=== PATIENT | male | born 1950 | race Caucasian/White ===

== ENCOUNTER 2024-04-30 09:04 | Day surgery (SDC) | payer OTHER ==
[2024-04-26 16:05] LABS: BASOPHILS % (AUTO) 0.8 % (0-1); EOSINOPHILS # (AUTO) 0.3 X10'3 (0-0.9); EOSINOPHILS % (AUTO) 4.8 % (0-6); HEMATOCRIT 47.9 % (42.0-52.0); HEMOGLOBIN 15.4 g/dl (14.0-17.9); LYMPHOCYTES # (AUTO) 1.7 X10'3 (1.1-4.8); LYMPHOCYTES % (AUTO) 31.3 % (21-51); MEAN CORPUSCULAR HEMOGLOBIN 28.5 PG (27.0-31.0); MEAN CORPUSCULAR HGB CONC 32.2 g/dL (33.0-36.5); MEAN CORPUSCULAR VOLUME 88.3 FL (78-98); MEAN PLATELET VOLUME 8.3 FL (7.4-10.4); MONOCYTES # (AUTO) 0.4 X10'3 (0-0.9); MONOCYTES % (AUTO) 8.1 % (2-12); PLATELET COUNT 175 X10'3 (140-440); RED BLOOD COUNT 5.43 X10'6 (4.70-6.10); RED CELL DISTRIBUTION WIDTH 15.3 % (11.5-14.5); WHITE BLOOD COUNT 5.5 X10'3 (4.5-11.0)
[2024-04-26 16:15] LABS: APTT 28 SECONDS (22-32); INR 1.1 INR; PROTHROMBIN TIME 11.4 SECONDS (9.0-12.0)
[2024-04-26 16:16] LABS: ALBUMIN 3.7 G/DL (3.4-5.0); ANION GAP 6 (8-16); BLOOD UREA NITROGEN 27 MG/DL (7-18); BUN/CREATININE RATIO 13.8 (10.0-20.0); CHLORIDE 106 MMOL/L (99-107); CHOL/HDL RATIO 2.1 (0.00-4.99); CHOLESTEROL 119 MG/DL (0-200); CREATININE 1.96 MG/DL (0.60-1.10); GLUCOSE 186 MG/DL (70-104); HDL CHOLESTEROL 56 MG/DL (35-60); LDL CHOLESTEROL 55 MG/DL (50-100); POTASSIUM 4.8 MMOL/L (3.5-5.1); SODIUM 141 MMOL/L (135-145); TOTAL CARBON DIOXIDE 29.3 MMOL/L (24-32); TRIGLYCERIDES 45 MG/DL (20-135); eGFR 34 ML/MIN
[2024-04-30] VITALS (11 sets, daily range): BP systolic 130–168; BP diastolic 85–101; PULSE 77–101; RESP 12–17; TEMP 98; O2SAT 90–95
[~2024-04-30] VITALS: Ht 167.6 cm; Wt 78.0 kg
[2024-04-30] MEDS ORDERED: ATOR40TA71 PO (11:29)
[2024-04-30] MEDS ORDERED: TIOT4MIS2 IH (11:29)
[2024-04-30] MEDS ORDERED: LISI2.5T14 PO (11:29)
[2024-04-30] MEDS ORDERED: CYAN100T24 PO (11:29)
[2024-04-30] MEDS ORDERED: ALBU18HF2 INH (11:29)
[2024-04-30] MEDS ORDERED: ASPI-611 PO (11:29)
[2024-04-30] MEDS ORDERED: ERGO400C2 PO (11:29)
[2024-04-30] MEDS ORDERED: GUAI600T45 PO (11:29)
[2024-04-30] MEDS ORDERED: FLO0.4C PO (11:29)
[2024-04-30] MEDS ORDERED: OMEP20CA16 PO (11:29)
[2024-04-30] MEDS ORDERED: HUM7525 SQ (11:29)
[2024-04-30] MEDS ORDERED: FERR-39 PO (11:29)
[2024-04-30] MEDS ORDERED: verapamil 2.5 mg/ml inj IV ONE (11:44)
[2024-04-30] MEDS: diphenhydrAMINE 25mg capsule PO PRN (11:44)
[2024-04-30] MEDS: LORazepam 0.5 MG tablet PO PRN (11:44)
[2024-04-30] MEDS ORDERED: LIDOcaine 1% (10mg/ml) 2ml vial ONE (11:44)
[2024-04-30] MEDS ORDERED: fentaNYL/PF 50MCG/1 ML 2ML syringe ONE (11:45)
[2024-04-30] MEDS ORDERED: iohexol 350MG/ML 100ml bottle IV ONE (11:45)
[2024-04-30] MEDS: normal saline 1,000 ML IV SCH (11:45)
[2024-04-30] MEDS ORDERED: midazolam 1 mg/ML 2ml injection ONE ×2 (11:45→13:31)
[2024-04-30] MEDS ORDERED: heparin 1,000unit/ml 10ml vial 10 ML ONE (11:45)
[2024-04-30] MEDS ORDERED: iohexol 350 MG/ML 50ML vial IV ONE (11:45)
[2024-04-30] MEDS ORDERED: nitroGLYCERIN 500mcg/5mL D5W 5 ML IV ONE (11:46)
[2024-04-30] MEDS ORDERED: LIDOcaine 1% 30ml preserv. free vial ONE (13:01)
[2024-04-30 14:02] LABS: ISTAT HGB ART 13.9 g/dl (14.0-17.9); ISTAT Hct ART 41 %PCV (42-52); ISTAT O2 SATURATION ARTERIAL 93 % (95-98); ISTAT SOURCE ART
[2024-04-30] MEDS ORDERED: HYDROcodone/acetaminophen 5mg/325mg tablet PO PRN (14:15)
[2024-04-30] MEDS ORDERED: HYDROcodone/acetaminophen 10/325mg tab PO PRN (14:15)
[2024-05-01 06:15] LABS: ISTAT HGB MIX 14.3 g/dl (14.0-17.9); ISTAT Hct MIX 42 %PCV (42-52); ISTAT O2 SATURATION MIX VENOUS 56 % (60-80); ISTAT SOURCE VEN
== END 2024-04-30 16:32 | disposition home or self-care (01) ==
LOC: SSTAY O 09:04
PROVIDERS: ATTEND Student in an Organized Health Care Education/Training Program
DX: I35.0 Nonrheumatic aortic (valve) stenosis (principal); I10 Essential (primary) hypertension; I25.10 Atherosclerotic heart disease of native coronary artery without angina pectoris; E11.9 Type 2 diabetes mellitus without complications; E78.00 Pure hypercholesterolemia, unspecified; J44.9 Chronic obstructive pulmonary disease, unspecified; F43.10 Post-traumatic stress disorder, unspecified; Z79.82 Long term (current) use of aspirin; Z79.899 Other long term (current) drug therapy; Z82.49 Family history of ischemic heart disease and other diseases of the circulatory system
CPT/HCPCS: 36415; 76937; 80048; 80061; 82803; 82948; 85014; 85025; 85610; 85730; 93005; 93460; 99152; 99153; J1644; J2250; J3010; J3490; J7030; Q0163; Q9967; A4615; A6258; C1751; C1887; C1894

== ENCOUNTER 2024-06-18 09:20 | Day surgery (SDC) | payer OTHER ==
[2024-06-14 11:55] LABS: BASOPHILS # (AUTO) 0.1 X10'3 (0-0.2); BASOPHILS % (AUTO) 1.3 % (0-1); EOSINOPHILS # (AUTO) 0.3 X10'3 (0-0.9); EOSINOPHILS % (AUTO) 4.4 % (0-6); HEMATOCRIT 43.6 % (42.0-52.0); HEMOGLOBIN 14.1 g/dl (14.0-17.9); LYMPHOCYTES # (AUTO) 1.7 X10'3 (1.1-4.8); LYMPHOCYTES % (AUTO) 28.7 % (21-51); MEAN CORPUSCULAR HEMOGLOBIN 28.9 PG (27.0-31.0); MEAN CORPUSCULAR HGB CONC 32.3 g/dL (33.0-36.5); MEAN CORPUSCULAR VOLUME 89.4 FL (78-98); MEAN PLATELET VOLUME 8.1 FL (7.4-10.4); MONOCYTES # (AUTO) 0.4 X10'3 (0-0.9); MONOCYTES % (AUTO) 7.1 % (2-12); NEUTROPHILS # (AUTO) 3.5 X10'3 (1.8-7.7); NEUTROPHILS % (AUTO) 58.5 % (42-75); PLATELET COUNT 237 X10'3 (140-440); RED BLOOD COUNT 4.88 X10'6 (4.70-6.10); RED CELL DISTRIBUTION WIDTH 14.9 % (11.5-14.5)
[2024-06-14 12:03] LABS: ALBUMIN 3.5 G/DL (3.4-5.0); ANION GAP 7 (8-16); BLOOD UREA NITROGEN 35 MG/DL (7-18); BUN/CREATININE RATIO 17.9 (10.0-20.0); CALCIUM 9.6 MG/DL (8.5-10.1); CHLORIDE 107 MMOL/L (99-107); CREATININE 1.95 MG/DL (0.60-1.10); GLUCOSE 190 MG/DL (70-104); POTASSIUM 4.8 MMOL/L (3.5-5.1); SODIUM 142 MMOL/L (135-145); TOTAL CARBON DIOXIDE 27.8 MMOL/L (24-32); eGFR 34 ML/MIN
[2024-06-14 12:07] LABS: APTT 26 SECONDS (22-32); INR 1.1 INR; PROTHROMBIN TIME 11.2 SECONDS (9.0-12.0)
[2024-06-18] VITALS (10 sets, daily range): BP systolic 121–140; BP diastolic 71–86; PULSE 60–88; RESP 10–17; TEMP 98.1; O2SAT 93–96
[~2024-06-18] VITALS: Ht 170.2 cm; Wt 78.4 kg
[~2024-06-18 09:20] MED LIST: ALBU18HF2 INH; ASPI-611 PO; ATOR40TA71 PO; CYAN100T24 PO; ERGO400C2 PO; FERR-39 PO; FLO0.4C PO; GUAI600T45 PO; HUM7525 SQ; LISI2.5T14 PO; OMEP20CA16 PO; TIOT4MIS2 IH
[2024-06-18] MEDS: normal saline 1,000 ML IV SCH (11:44)
[2024-06-18] MEDS: LORazepam 0.5 MG tablet PO PRN (11:44)
[2024-06-18] MEDS: diphenhydrAMINE 25mg capsule PO PRN (11:44)
[2024-06-18] MEDS ORDERED: LIDOcaine 1% 30ml preserv. free vial ONE (12:14)
[2024-06-18] MEDS ORDERED: fentaNYL/PF 50MCG/1 ML 2ML syringe ONE (12:14)
[2024-06-18] MEDS ORDERED: midazolam 1 mg/ML 2ml injection ONE (12:14)
[2024-06-18] MEDS ORDERED: iohexol 350MG/ML 100ml bottle IV ONE ×2 (12:15)
[2024-06-18] MEDS ORDERED: heparin 1,000unit/ml 10ml vial 10 ML ONE (12:15)
[2024-06-18] MEDS ORDERED: clopidogrel 300mg tablet ONE (13:37)
[2024-06-18] MEDS ORDERED: aspirin 325mg tablet ONE (13:37)
[2024-06-18] MEDS ORDERED: HYDROcodone/acetaminophen 10/325mg tab PO PRN (14:25)
[2024-06-18] MEDS ORDERED: HYDROcodone/acetaminophen 5mg/325mg tablet PO PRN (14:25)
== END 2024-06-18 16:35 | disposition home or self-care (01) ==
LOC: SSTAY O 09:20
PROVIDERS: ATTEND Internal Medicine Interventional Cardiology
DX: I25.118 Atherosclerotic heart disease of native coronary artery with other forms of angina pectoris (principal); I12.9 Hypertensive chronic kidney disease with stage 1 through stage 4 chronic kidney disease, or unspecified chronic kidney disease; E11.22 Type 2 diabetes mellitus with diabetic chronic kidney disease; N18.30 Chronic kidney disease, stage 3 unspecified; E78.00 Pure hypercholesterolemia, unspecified; I35.0 Nonrheumatic aortic (valve) stenosis; F43.10 Post-traumatic stress disorder, unspecified; J44.9 Chronic obstructive pulmonary disease, unspecified; Z79.82 Long term (current) use of aspirin; Z79.899 Other long term (current) drug therapy; Z82.49 Family history of ischemic heart disease and other diseases of the circulatory system; Z83.3 Family history of diabetes mellitus
CPT/HCPCS: 36415; 80048; 85025; 85610; 85730; 93005; 93454; 99152; 99153; C1874; C9600; J1644; J2250; J3010; J3490; J7030; Q0163; Q9967; A6258; C1725; C1751; C1760; C1769